=== PATIENT | female | born 1995 | race African-American/Black ===

== ENCOUNTER 2017-08-07 12:18 | Emergency (ER) | payer OTHER ==
[~2017-08-07] VITALS: Ht 162.6 cm; Wt 69.4 kg
[~2017-08-07 12:18] MED LIST: NAPROSYN500 MG PO; ULTRACET1 TABLET PO
[2017-08-07 14:51] VITALS: BP 120/88
== END 2017-08-07 14:51 | disposition home or self-care (01) ==
LOC: EME 12:18
DX: L03.012 Cellulitis of left finger (principal); F17.200 Nicotine dependence, unspecified, uncomplicated
CPT/HCPCS: 99281; 99284